=== PATIENT | female | born 1950 | race Caucasian/White ===

== ENCOUNTER → 2019-09-20 13:20 | Outpatient (NON) | payer MEDICARE, SELFPAY ==
[2019-09-20 14:06] LABS: Add Urine Microscopic? YES; Appearance Urine Clear (Clear); Bilirubin Urine Negative (Negative); Blood Urine Negative (Negative); Color Urine Yellow (Yellow); Glucose Urine UA 1+ mg/dL (Negative); Ketones Urine Negative (Negative); Leukocyte Esterase Ur 1+ LEU/UL (Negative); Mucus Urine Rare /lpf; Nitrate Urine Negative (Negative); Protein Urine 1+ mg/dL (Negative); RBC Urine 0-2 /hpf (0-2); Specific Grav Ur 1.014 (1.001-1.035); Squamous Epithelial Cell Urine Few /hpf (Few); Urobilinogen Urine Negative mg/dL (<2.0)
== END ==
PROVIDERS: Visit Provider Family Medicine
DX: J96.90 Respiratory failure, unspecified, unspecified whether with hypoxia or hypercapnia (principal); I50.33 Acute on chronic diastolic (congestive) heart failure; I11.0 Hypertensive heart disease with heart failure; E11.42 Type 2 diabetes mellitus with diabetic polyneuropathy; N39.0 Urinary tract infection, site not specified
CPT/HCPCS: 81001

== ENCOUNTER 2023-06-09 19:26 | Emergency (ER) | payer MEDICARE, SELFPAY ==
--- NOTE | ~2023-06-09 | XR_ITS ---
EXAMINATION: XR knee LT 3V DATE: 06/09/2023 19:46 INDICATION: Left knee injury. TECHNIQUE: 3 views of left knee were obtained. COMPARISON: Left knee radiographs 11/18/2017 FINDINGS: There is varus angulation at the knee. No fracture. There is severe tricompartmental osteoa rthritis. There is a large knee joint effusion with loose bodies. IMPRESSION: 1. Severe left knee osteoarthritis. 2. Large left knee joint effusion with loose bodies. Reviewed, dictated and finalized at location E. [facility] [employer]
[2023-06-09 19:25] VITALS: BP 121/73; PULSE 98; RESP 18; TEMP 36.8; O2SAT 95
--- NOTE | 2023-06-09 20:50 | ED.GENADULT ---
[facility] - General Adult General Chief complaint: Fall Stated complaint: fall Time Seen by Provider: 06/09/23 19:59 Source: patient Mode of arrival: ambulatory Limitations: no limitations History of Present Illness HPI narrative: this is a 72-year-old female with PMH of OA who presents to the ED with chief complaint of a fall and left knee injury. Reports that she got up from her recliner and was spitting to grab her walker with a walker slipped. Reports that this caused her to fall down onto both knees, resulting in significant left knee pain. Denies any pop. Denies numbness, weakness or any further sites of pain or injury. Related Data Allergies Allergy/AdvReac Type Severity Reaction Status Date / Time sulfamethoxazole Allergy Mild Rash Verified 06/09/23 21:18 Sulfa (Sulfonamide Allergy Unknown Unknown Unverified 06/09/23 21:18 Antibiotics) sulfamethizole Allergy Unknown Unknown Verified 06/09/23 21:18 trimethoprim Allergy Unknown Unknown Verified 06/09/23 21:18 Review of Systems Review of Systems: All systems as dictated in [facility] Family History Family History (Updated 08/05/17 @ 13:51 by DOCTOR UNKNOWN) Father Hypertension Family history of diabetes mellitus in first degree relative Family history of heart disease in male family member before age 55 Mother Family history of heart disease in male family member before age 55 Other Diabetes mellitus Family history of arthritis Family history of cardiovascular disease Family history of gout Social History Social History Smoking status: Never smoker Alcohol intake: never Exam Narrative: GENERAL: Well-appearing, well-nourished, and in no acute distress. HEAD: Normocephalic, atraumatic. EYES: PERRLA and EOMI. ENT: Nares clear, no rhinorrhea or epistaxis. Mucous membranes moist. Oropharynx without tonsillar hypertrophy exudate or other lesions. NECK: Supple. No adenopathy or masses. CHEST: No respiratory distress. Clear to auscultation. No wheezes rales or rhonchi HEART: Regular rate and rhythm. No murmur heard. Normal peripheral pulses. ABDOMEN: Soft, nontender, nondistended, normal active bowel sounds. MSK: LLE: Mild effusion to the left knee. No deformity. No bruising. Moderate tenderness throughout the left knee. Tenderness in the quadriceps region as well. RLE: Benign SKIN: Warm, dry, no rash. NEURO: Alert and oriented x3. No focal deficits. PSYCH: Normal mood and affect. Course Vital Signs Vital signs: Vital Signs Temperature 98.3 F 06/09/23 19:25 Pulse Rate 98 06/09/23 19:25 Respiratory Rate 18 06/09/23 19:25 Blood Pressure 121/73 06/09/23 19:25 Pulse Oximetry 95 06/09/23 19:25 Oxygen Delivery Room Air 06/09/23 19:25 Temperature 98.3 F 06/09/23 19:25 Pulse Rate 98 06/09/23 19:25 Respiratory Rate 18 06/09/23 19:25 Blood Pressure 121/73 06/09/23 19:25 Pulse Oximetry 95 06/09/23 19:25 Oxygen Delivery Room Air 06/09/23 19:25 Medical Decision Making MDM Narrative Medical decision making narrative: This is a 72-year-old female who presents to the ED with chief complaint of a fall and left knee injury. Vitals are normal. This was a ground level fall while transitioning from chair walker. Exam remarkable for the above. She can bear weight. X-ray show severe left knee osteoarthritis, large left knee joint effusion with loose bodies. No fracture. overall symptoms are consistent with exacerbation of note is the to fall. The fall was mechanical in nature. She is stable for discharge home. Supportive measures discussed and return precautions were given. She is understanding and agreeable with plan for discharge follow-up with PCP. Vital Signs Vital Signs: Vital Signs Temperature 98.3 F 06/09/23 19:25 Pulse Rate 98 06/09/23 19:25 Respiratory Rate 18 06/09/23 19:25 Blood Pressure 121/73 06/09/23 19:25 Pulse Oximetry 95 06/09/23
== END 2023-06-09 21:44 | disposition home or self-care (01) ==
LOC: ANHED 21:26
PROVIDERS: Emergency Provider Physician Assistant; PCP Physician Assistant
DX: M25.462 Effusion, left knee (principal); M17.12 Unilateral primary osteoarthritis, left knee; W18.39XA Other fall on same level, initial encounter
CPT/HCPCS: 73562; 99283

== ENCOUNTER 2024-02-24 01:23 | Day surgery (SDC) | payer MEDICARE, SELFPAY ==
[2024-02-02 13:37] VITALS: BMI 48.9
--- NOTE | 2024-02-23 09:44 | PC.NURSE ---
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 Concerned her blood sugar will drop. I told her to call her doctor that handles her insulin and manages her diabetes. She verbalizes she will call her today.
[2024-02-24 10:24] VITALS: BP 123/69; PULSE 86; RESP 20; TEMP 36.5; O2SAT 95
[2024-02-24] MEDS: LACTATED RINGERS 1,000 ML 150 ML IV CONT (10:31)
[2024-02-24 10:35] LABS: Glucose Point of Care 157 mg/dl (65-105)
--- NOTE | 2024-02-24 10:41 | WPDANESEPPF ---
Anes - Initial Pre Proc Eval Procedure: Operation Date: 02/24/24 11:30 Proposed Procedures p Colonoscopy - Frankie Dhillon MD Date/Time: 02/24/24 10:41 Surgeon: Frankie Dhillon MD Pre Op Diagnosis: History colon polyps, Family history malignant reji Patient Data Age: 73 Gender: F Height: 1.52 m Weight: 113.6 kg Last Vital Signs Temp 97.7 F 02/24/24 10:24 Pulse 86 02/24/24 10:24 Resp 20 02/24/24 10:24 BP 123/69 02/24/24 10:24 Pulse Ox 95 02/24/24 10:24 O2 Del Method Room Air 02/24/24 10:24 Allergies Allergy/AdvReac Type Severity Reaction Status Date / Time sulfamethoxazole Allergy Mild Rash Verified 02/24/24 10:22 Sulfa (Sulfonamide Allergy Unknown Unknown Verified 02/24/24 10:22 Antibiotics) sulfamethizole Allergy Unknown Unknown Verified 02/24/24 10:22 trimethoprim Allergy Unknown Unknown Verified 02/24/24 10:22 Home Medications Medication Instructions Recorded Confirmed Type insulin aspart U-100 100 unit/mL 28 unit subcut TID 06/23/23 02/24/24 History (3 mL) subcutaneous pen (Novolog FlexPen U-100 Insulin aspart) insulin glargine 100 unit/mL (3 45 unit subcut BID 06/23/23 02/24/24 History mL) subcutaneous pen (Lantus Solostar U-100 Insulin) duloxetine 60 mg capsule,delayed 60 mg PO DAILY #30 caps 08/16/23 02/24/24 Rx release spironolactone 25 mg tablet 25 mg PO DAILY #30 tabs 08/16/23 02/24/24 Rx tamsulosin 0.4 mg capsule 0.4 mg PO QHS #30 caps 08/16/23 02/24/24 Rx allopurinol 100 mg tablet 100 mg PO DAILY 02/02/24 02/24/24 History aspirin 81 mg tablet 81 mg PO DAILY 02/02/24 02/24/24 History dapagliflozin propanediol 10 mg 10 mg PO DAILY 02/02/24 02/24/24 History tablet (Farxiga) gabapentin 300 mg capsule 300 mg PO BID 02/02/24 02/24/24 History levothyroxine 175 mcg tablet 150 mcg PO QAM 02/02/24 02/24/24 History lisinopril 20 mg tablet 40 mg PO DAILY 02/02/24 02/24/24 History metformin 1,000 mg tablet 1,000 mg PO BID 02/02/24 02/24/24 History metoprolol succinate 50 mg 50 mg PO DAILY 02/02/24 02/24/24 History tablet,extended release 24 hr rosuvastatin 40 mg tablet 40 mg PO DAILY 02/02/24 02/24/24 History Laboratory Tests 02/24/24 10:28 POC Capillary Glucose 157 H mg/dl (65-105) Patient hx anesthesia problems: none Family hx anesthesia problems: none Results Review: All pre-operative results and documents have been reviewed as part of the pre-operative evaluation. [facility] Family History Family History (Updated 08/05/17 @ 13:51 by DOCTOR UNKNOWN) Father Hypertension Family history of diabetes mellitus in first degree relative Family history of heart disease in male family member before age 55 Mother Family history of heart disease in male family member before age 55 Other Diabetes mellitus Family history of arthritis Family history of cardiovascular disease Family history of gout Social History Social History Smoking status: Never smoker Alcohol intake: never Substance use type: does not use Living arrangements: alone Spiritual care concerns: No Anes - Eval Final PreProcedure Day of Procedure 02/24/24 10:41 Patient weight: morbidly obese Heart: regular rate and rhythm Lungs: clear to auscultation Airway: Mallampati scale class III Neurological: alert and oriented Last oral intake: >/= 8 hours ASA classification: IV Emergent: no Anesthetic plan: proceed Anesthesia type and monitoring: general GIVS and standard monitoring Results Review: All pre-operative results and documents have been reviewed as part of the pre-operative evaluation. Informed Consent: The patient's anesthetic plan and its attendant risks and benefits were discussed with the patient/family/POA. Questions were solicited and answers provided to the satisfaction of the patient/family/POA.
--- NOTE | 2024-02-24 10:46 | PM.HPGS ---
History of Present Illness History of Present Illness Consent: Risks, benefits, and alternatives have been discussed and questions answered. Patient agrees to proceed with procedure. Chief complaint: History colon polyps, Family history malignant reji Narrative: Cristal Bustos is a 73 year old female with colon polyp in 2018 Review of Systems Review of Systems: All systems reviewed & are unremarkable except as noted in HPI and below PMFSH Past Medical History Medical History (Updated 02/24/24 @ 10:49 by Frankie Dhillon MD) Colon polyp Family History Family History (Updated 08/05/17 @ 13:51 by DOCTOR UNKNOWN) Father Hypertension Family history of diabetes mellitus in first degree relative Family history of heart disease in male family member before age 55 Mother Family history of heart disease in male family member before age 55 Other Diabetes mellitus Family history of arthritis Family history of cardiovascular disease Family history of gout Social History Social History Smoking status: Never smoker Alcohol intake: never Substance use type: does not use Living arrangements: alone Spiritual care concerns: No Meds Home Medications and Allergies Home Medications Medication Instructions Recorded Confirmed Type insulin aspart U-100 100 unit/mL 28 unit subcut TID 06/23/23 02/24/24 History (3 mL) subcutaneous pen (Novolog FlexPen U-100 Insulin aspart) insulin glargine 100 unit/mL (3 45 unit subcut BID 06/23/23 02/24/24 History mL) subcutaneous pen (Lantus Solostar U-100 Insulin) duloxetine 60 mg capsule,delayed 60 mg PO DAILY #30 caps 08/16/23 02/24/24 Rx release spironolactone 25 mg tablet 25 mg PO DAILY #30 tabs 08/16/23 02/24/24 Rx tamsulosin 0.4 mg capsule 0.4 mg PO QHS #30 caps 08/16/23 02/24/24 Rx allopurinol 100 mg tablet 100 mg PO DAILY 02/02/24 02/24/24 History aspirin 81 mg tablet 81 mg PO DAILY 02/02/24 02/24/24 History dapagliflozin propanediol 10 mg 10 mg PO DAILY 02/02/24 02/24/24 History tablet (Farxiga) gabapentin 300 mg capsule 300 mg PO BID 02/02/24 02/24/24 History levothyroxine 175 mcg tablet 150 mcg PO QAM 02/02/24 02/24/24 History lisinopril 20 mg tablet 40 mg PO DAILY 02/02/24 02/24/24 History metformin 1,000 mg tablet 1,000 mg PO BID 02/02/24 02/24/24 History metoprolol succinate 50 mg 50 mg PO DAILY 02/02/24 02/24/24 History tablet,extended release 24 hr rosuvastatin 40 mg tablet 40 mg PO DAILY 02/02/24 02/24/24 History Allergies Allergy/AdvReac Type Severity Reaction Status Date / Time sulfamethoxazole Allergy Mild Rash Verified 02/24/24 10:22 Sulfa (Sulfonamide Allergy Unknown Unknown Verified 02/24/24 10:22 Antibiotics) sulfamethizole Allergy Unknown Unknown Verified 02/24/24 10:22 trimethoprim Allergy Unknown Unknown Verified 02/24/24 10:22 Vital Signs Vital Signs - 24 hr 02/24/24 10:24 Temperature 97.7 F Pulse Rate 86 Respiratory Rate 20 Blood Pressure 123/69 Pulse Oximetry 95 Oxygen Delivery Room Air Exam Const: General: comfortable and no acute distress HENMT: Face/Nose/Sinus: Normal nares present Eyes: General: appearance normal, both eyes and all related structures Neck: Neck: no JVD Resp: Auscultation: clear to auscultation bilaterally Cardio: Rate: regular rate Rhythm: regular rhythm GI: Inspection: non-distended GI Palp: Yes Soft to palpation Skin: General skin exam: normal color Neuro: General: gait normal Speech: normal speech Extrem: General: normal to inspection Psych: Mental Status: mental status grossly normal Assessment and Plan Assessment and plan (1) Colon polyp: Code(s): K63.5 - Polyp of colon Status: Acute Assessment and Plan: colonoscopy
[2024-02-24 11:23] VITALS: BP 107/52; PULSE 87; RESP 22; O2SAT 95
[2024-02-24 11:31] LABS: Glucose Point of Care 113 mg/dl (65-105)
[2024-02-24 11:33] VITALS: BP 115/58; PULSE 79; RESP 22; O2SAT 95
[2024-02-24 11:43] VITALS: BP 116/52; PULSE 78; RESP 17; O2SAT 95
== END 2024-02-24 11:54 ==
PROVIDERS: PCP Nurse Practitioner Family; Visit Provider Internal Medicine Gastroenterology
PROC: 0DJD8ZZ Inspection of Lower Intestinal Tract, Via Natural or Artificial Opening Endoscopic (ICD-10-PCS; CPT 45378; principal; 2024-02-24 11:30)
DX: Z12.11 Encounter for screening for malignant neoplasm of colon (principal); D12.2 Benign neoplasm of ascending colon; D12.3 Benign neoplasm of transverse colon; D12.5 Benign neoplasm of sigmoid colon; K63.5 Polyp of colon; K64.8 Other hemorrhoids; K57.30 Diverticulosis of large intestine without perforation or abscess without bleeding; E66.01 Morbid (severe) obesity due to excess calories; Z68.42 Body mass index [BMI] 45.0-49.9, adult; Z79.4 Long term (current) use of insulin; Z79.82 Long term (current) use of aspirin; Z79.84 Long term (current) use of oral hypoglycemic drugs; Z86.010 Personal history of colon polyps; Z80.0 Family history of malignant neoplasm of digestive organs; Z82.49 Family history of ischemic heart disease and other diseases of the circulatory system
CPT/HCPCS: 45385; 45380; 82948; 88305; J2704; J7120